=== PATIENT | female | born 1970 | race Caucasian/White ===

== ENCOUNTER → 2019-04-09 | Outpatient (CLI) | payer BC | LOC: LAB.O 15:43 | PROVIDERS: ATTEND Nurse Practitioner Family | DX: Z00.01 Encounter for general adult medical examination with abnormal findings (principal); I10 Essential (primary) hypertension; E03.9 Hypothyroidism, unspecified; E66.9 Obesity, unspecified; Z68.41 Body mass index [BMI] 40.0-44.9, adult ==

== ENCOUNTER 2019-04-10 19:56 | Emergency (ER) | payer BC ==
[2019-04-10] MEDS ORDERED: POTASSIUM CHLORIDE ELIXIR 20 MEQ/15 ML UD PO ONE (20:14)
[2019-04-10] MEDS ORDERED: amLODIPine BESYLATE 5 MG TAB PO ONE (20:56)
--- NOTE | 2019-04-10 21:53 | ED.PDOC ---
History of Present Illness - General Chief Complaint: Blood Pressure Problem Stated Complaint: elevated blood pressure, headache Time Seen by Provider: 04/10/19 20:14 Source: patient Exam Limitations: no limitations - History of Present Illness Initial Comments: The patient is a 48-year-old female brought in from clinic secondary to refractory hypertension. Blood pressures were in the 240s over 140s in clinic. The patient did have a mild headache. She has also been found to have some retinal hemorrhaging by her field talent qualification specialist. She was just found to have hypertension yesterday. Blood work yesterday shows mild hypokalemia. She is alert and oriented without any focal neurological changes. No chest pain or shortness of breath.the patient did receive a dose of clonidine prior to arrival here. Timing/Duration: unsure Severity: moderate Improving Factors: nothing Worsening Factors: nothing Associated Symptoms: headaches Home Medications: Ambulatory Orders Amlodipine Besylate 5 mg PO DAILY #21 tab 04/10/19 Potassium Chloride [Potassium Chloride ER] 10 meq PO DAILY #20 tab 04/10/19 Review of Systems - Review of Systems Constitutional: States: no symptoms reported EENTM: States: no symptoms reported Respiratory: States: no symptoms reported Cardiology: States: no symptoms reported Gastrointestinal/Abdominal: States: no symptoms reported Genitourinary: States: no symptoms reported Musculoskeletal: States: no symptoms reported Skin: States: no symptoms reported Neurological: States: headache Endocrine: States: no symptoms reported All other Systems: No Change from Baseline Past Medical History (General) - Patient Medical History Hx Seizures: No Hx Stroke: No Hx Dementia: No Hx Asthma: No Hx of COPD: No Hx Cardiac Disorders: No Hx Congestive Heart Failure: No Hx Pacemaker: No Hx Hypertension: Yes Hx Thyroid Disease: No Hx Diabetes: No Hx Gastroesophageal Reflux: No Hx Renal Disease: No Hx of HIV: No Hx MRSA: No Surgical History: other - Vaccination History Hx Tetanus, Diphtheria Vaccination: No Hx Influenza Vaccination: No Hx Pneumococcal Vaccination: No - Social History Hx Tobacco Use: No Hx Alcohol Use: Yes - occ Family Medical History - Family History Mother Hx Cardiac Disease: Yes Hx Family Cancer: Yes Physical Exam - Physical Exam General Appearance: Alert, Comfortable, No apparent distress Eye Exam: bilateral normal Ears, Nose, Throat: hearing grossly normal, normal ENT inspection Neck: full range of motion, supple Respiratory: lungs clear, normal breath sounds, no respiratory distress, no accessory muscle use Cardiovascular/Chest: normal peripheral pulses, regular rate, rhythm, no edema Peripheral Pulses: radial,right: 2+, radial,left: 2+ Gastrointestinal/Abdominal: non tender, soft Rectal Exam: deferred Back Exam: no CVA tenderness, no vertebral tenderness Extremity: normal range of motion, non-tender, normal inspection, no pedal edema, normal capillary refill Neurologic: grinder hand II-XII nml as tested, alert, normal mood/affect, oriented x 3 Skin Exam: normal color Comments: Vital Signs - 24 hr 04/10/19 04/10/19 04/10/19 20:10 21:20 21:49 Temperature 98.8 F 98.8 F Pulse Rate [ 80 84 80 left] Respiratory 20 20 20 Rate Blood Pressure 179/101 196/117 182/94 [left] O2 Sat by Pulse 98 99 Oximetry last blood pressure is 160/98 Progress - Progress Progress: 04/10/19 21:53 the patient is a 48-year-old female with markedly uncontrolled hypertension and a symptomatic headache from it. The patient received 10 mg of amlodipine here. Blood pressures are improving. She is going to be written for 5 mg of amlodipine daily for the next 3 weeks. She needs to continue her other blood pressure medication. In addition I'm going to write her for some supplemental potassium as her potassium was low in the check yesterday. She does need to follow her blood pressures several times daily when she is good and relaxed. She needs to keep follow-up with her primary care doctor. ER warnings were given for any significant worsening. Departure - Departure Clinical Impression: Hypertensive urgency Headache Qualifiers: Headache type: unspecified Headache chronicity pattern: acute headache Intractability: not intractable Qualified Code(s): R51 - Headache Disposition: Discharge to Home or Self Care Condition: Fair Departure Forms: ED Discharge - Pt. Copy, Patient Portal Self Enrollment Diet: low salt diet Activity: increase activity as tolerated Referrals: Babita Casiano NP [Primary Care Provider] - 1-5 Days Prescriptions: Amlodipine Besylate 5 mg PO DAILY #21 tab Potassium Chloride [Potassium Chloride ER] 10 meq PO DAILY #20 tab Home Medications: Ambulatory Orders Amlodipine Besylate 5 mg PO DAILY #21 tab 04/10/19 Potassium Chloride [Potassium Chloride ER] 10 meq PO DAILY #20 tab 04/10/19 Additional Instructions: the patient is a 48-year-old female with markedly uncontrolled hypertension and a symptomatic headache from it. The patient received 10 mg of amlodipine here. Blood pressures are improving. She is going to be written for 5 mg of amlodipine daily for the next 3 weeks. She needs to continue her other blood pressure medication. In addition I'm going to write her for some supplemental potassium as her potassium was low in the check yesterday. She does need to follow her blood pressures several times daily when she is good and relaxed. She needs to keep follow-up with her primary care doctor. ER warnings were given for any significant worsening.
[2019-04-10 22:12] VITALS: BP 164/98; TEMP 98.4; O2SAT 94
== END 2019-04-10 22:10 | disposition home or self-care (01) ==
LOC: ER 19:56
DX: I16.0 Hypertensive urgency (principal); R51 Headache

== ENCOUNTER 2019-04-24 16:24 | Emergency (ER) | payer BC ==
[2019-04-24 16:51] VITALS: TEMP 98.8
[2019-04-24] MEDS ORDERED: cloNIDine HCL 0.1 MG TAB PO ONE (16:51)
[2019-04-24] MEDS ORDERED: SODIUM CHLORIDE 0.9% 1000ML 1,000 ML IVS ONE (16:52)
[2019-04-24] MEDS ORDERED: diphenhydrAMINE HCL 50 MG/ML VIAL IV STA (16:53)
[2019-04-24] MEDS ORDERED: METOCLOPRAMIDE HCL INJ 10 MG/2 ML VIAL IV ONE (16:53)
--- NOTE | 2019-04-24 17:09 | ED.PDOC ---
History of Present Illness - General Chief Complaint: General Stated Complaint: Sinus pressure, N/V, abd cramping, ALMEIDA, HTN Time Seen by Provider: 04/24/19 16:49 Source: patient, RN notes reviewed, Vital Signs reviewed - History of Present Illness Initial Comments: The patient is a 48 year old with recent diagnosis of hypertension who presents with headache, nausea/vomiting, blurry vision. She states that she woke with these symptoms this morning. She was recently diagnosed with hypertension and has been compliant with her medications. She went to her chiropractor this afternoon with minimal relief. She saw her marketing analytics manager for her blurred vision and was told she had small bilateral retinal hemorrhages. This afternoon she started vomiting. She denies fever, diarrhea, other systemic symptoms. No other complaints at this time. Allergies/Adverse Reactions: Allergies Penicillins Allergy (Verified 04/24/19 16:51) Home Medications: Ambulatory Orders Amlodipine Besylate 5 mg PO DAILY #21 tab 04/10/19 Potassium Chloride [Potassium Chloride ER] 10 meq PO DAILY #20 tab 04/10/19 Xgabstejqp-Bvcxakweekttq-Kvsfo [Fioricet] 1 cap PO Q4HR PRN #20 cap 04/24/19 Review of Systems - Review of Systems Constitutional: States: malaise EENTM: States: blurred vision. Denies: eye pain, double vision Respiratory: Denies: cough, short of breath Cardiology: Denies: chest pain, palpitations Gastrointestinal/Abdominal: States: nausea, vomiting Genitourinary: States: no symptoms reported Musculoskeletal: States: no symptoms reported Skin: States: no symptoms reported Neurological: States: headache. Denies: numbness, paresthesia, tingling, weakness Past Medical History (General) - Patient Medical History Hx Seizures: No Hx Stroke: No Hx Dementia: No Hx Asthma: No Hx of COPD: No Hx Cardiac Disorders: No Hx Congestive Heart Failure: No Hx Pacemaker: No Hx Hypertension: Yes Hx Thyroid Disease: No Hx Diabetes: No Hx Gastroesophageal Reflux: No Hx Renal Disease: No Hx Cancer: Yes - Skin Hx of HIV: No Hx MRSA: No Surgical History: other - Vaccination History Hx Tetanus, Diphtheria Vaccination: No Hx Influenza Vaccination: No Hx Pneumococcal Vaccination: No - Social History Hx Tobacco Use: No Hx Alcohol Use: Yes Hx Substance Use: No Hx Substance Use Treatment: No Hx Depression: No - Female History Patient is a Female of Child Bearing Age (10 -59 yrs old): Yes Patient : No Family Medical History - Family History Mother Hx Cardiac Disease: Yes Hx Family Cancer: Yes Physical Exam - Physical Exam General Appearance: Alert, Comfortable, Obese, Well Developed, Well Nourished Ears, Nose, Throat: normal ENT inspection Neck: non-tender, full range of motion Respiratory: lungs clear, normal breath sounds, no respiratory distress, no accessory muscle use Cardiovascular/Chest: regular rate, rhythm, no edema, no JVD Gastrointestinal/Abdominal: normal bowel sounds, non tender Neurologic: chicken and fish cleaner II-XII nml as tested, no motor/sensory deficits, alert, normal mood/affect, oriented x 3 Progress - Progress Progress: 04/24/19 17:00 EKG STAT Laboratory Results - last 24 hr 04/24/19 04/24/19 04/24/19 17:00 17:00 17:00 WBC 9.7 RBC 4.65 Hgb 12.6 Hct 37.6 MCV 81.0 MCH 27.2 MCHC 33.6 RDW 15.3 H Plt Count 361 MPV 7.9 Absolute Neuts (auto) 7.50 H Absolute Lymphs (auto) 1.60 Absolute Monos (auto) 0.50 Absolute Eos (auto) 0.00 Absolute Basos (auto) 0.10 Neutrophils % 77.9 Lymphocytes % 16.0 L Monocytes % 5.3 Eosinophils % 0.2 L Basophils % 0.6 Sodium 136 Potassium 3.9 Chloride 97 L Carbon Dioxide 26 Anion Gap 16.9 BUN 21 H Creatinine 1.03 BUN/Creatinine Ratio 20.4 H Random Glucose 124 H Serum Osmolality 276.3 Calcium 9.3 Troponin I 0.09 H* 04/24/19 19:15 WBC RBC Hgb Hct MCV MCH MCHC RDW Plt Count MPV Absolute Neuts (auto) Absolute Lymphs (auto) Absolute Monos (auto) Absolute Eos (auto) Absolute Basos (auto) Neutrophils % Lymphocytes % Monocytes % Eosinophils % Basophils % Sodium Potassium Chloride Carbon Dioxide Anion Gap BUN Creatinine BUN/Creatinine Ratio Random Glucose Serum Osmolality Calcium Troponin I 0.08 H* 04/24/19 17:55 Patient reassessed, her headache has improved. CT reviewed, will add toradol. Suspect mild troponin elevation secondary to HTN urgency, will repeat. 04/24/19 19:53 Patient reassessed, she notes that her headache is significantly improved. Neurologic exam is non-focal. There is no evidence for hemorrhage on CT head. Discussed blood pressure management, she had her amlodipine increased to 10mg daily and picked up new prescription today. Discussed importance of maintaining blood pressure log. Will continue outpatient symptomatic management and follow up with PCP. Home care instructions and return indications reviewed. MDM Patient presents to the ED with migraine headache, nausea/vomiting, hypertensive urgency. Recently diagnosed as hypertensive and started on multiple medications. had her amlodipine increased today. On arrival to ED the blood pressure was over 200 systolic. She saw her chiropracter and marketing analytics manager today. While in the ED there is no evidence for acute stroke, intracranial hemorrhage, dissection or other vascular emergency. No neurologic deficits or lateralizing signs. Her headache and blood pressure improved with ED management. She has some posterior retinal hemorrhages likely secondary to uncontrolled hypertension and will continue outpatient follow up for this. She will maintain a home blood pressure log. Home care instructions and return indications reviewed. - EKG/XRAY/CT Comments: 1649 sinus tachy rate 104, LVH, nonspecific twave changes no stemi CT: No acute intracranial abnormality, see read CT Ordered: Yes Departure - Departure Clinical Impression: Hypertensive urgency, malignant Headache Qualifiers: Headache type: unspecified Headache chronicity pattern: acute headache Intractability: not intractable Qualified Code(s): R51 - Headache Time of Disposition: 19:58 Disposition: Discharge to Home or Self Care Condition: Good Departure Forms: ED Discharge - Pt. Copy, Patient Portal Self Enrollment Instructions: Headache, Adult (DC), Malignant Hypertension (DC) Diet: low salt diet Activity: increase activity as tolerated Referrals: Babita Casiano NP [Primary Care Provider] - 1-2 Weeks Prescriptions: Lsidljniaa-Byjbbwstuhror-Whbll [Fioricet] 1 cap PO Q4HR PRN #20 cap PRN Reason: Headache/Migraine Pain Home Medications: Ambulatory Orders Amlodipine Besylate 5 mg PO DAILY #21 tab 04/10/19 Potassium Chloride [Potassium Chloride ER] 10 meq PO DAILY #20 tab 04/10/19 Anjyjbsdrj-Ugiucdxrrcxuw-Iqzhp [Fioricet] 1 cap PO Q4HR PRN #20 cap 04/24/19 Comments: Forrest Richter MD Emergency Medicine Physician Number [id number]
--- NOTE | 2019-04-24 17:34 | CT ---
EXAM: CT Head Without Intravenous Contrast CLINICAL HISTORY: sudden onset headache, vomiting, Bp > 200 TECHNIQUE: Axial computed tomography images of the head/brain without intravenous contrast. Sagittal and coronal reformatted images were created and reviewed. This CT exam was performed using one or more of the following dose reduction techniques: automated exposure control, adjustment of the mA and/or kV according to patient size, and/or use of iterative reconstruction technique. COMPARISON: No relevant prior studies available. FINDINGS: Limitations: None. Brain: Unremarkable. No hemorrhage. No significant white matter disease. No edema. Ventricles: Unremarkable. No ventriculomegaly. Bones/joints: Unremarkable. No acute fracture. Soft tissues: Unremarkable. Sinuses: Unremarkable as visualized. No acute sinusitis. Mastoid air cells: Unremarkable as visualized. No mastoid effusion. IMPRESSION: No acute findings. Consider MRI if additional imaging is clinically warranted. Electronically signed by: Tori Craft MD 04/24/2019 5:32 PM CDT
[2019-04-24] MEDS ORDERED: KETOROLAC TROMETHAMINE INJ 30 MG/ML VIAL IV ONE (17:56)
[2019-04-24] MEDS ORDERED: ACETAMINOPHEN-CAFF-BUTALBITAL 1 EA TAB PO STA (19:23)
[2019-04-24] MEDS ORDERED: MORPHINE SULFATE INJ 10 MG/ML VIAL IV ONE (19:24)
[2019-04-24 20:12] VITALS: BP 137/85; O2SAT 98
== END 2019-04-24 20:13 | disposition home or self-care (01) ==
LOC: ER 16:24
DX: I16.0 Hypertensive urgency (principal); R51 Headache; R11.2 Nausea with vomiting, unspecified; R00.0 Tachycardia, unspecified; Z85.828 Personal history of other malignant neoplasm of skin; Z79.899 Other long term (current) drug therapy; Z88.0 Allergy status to penicillin
CPT/HCPCS: 36415; 70450; 80048; 84484; 85025; 93005; J1200; J1885; J2270; J2765; J7030

== ENCOUNTER → 2019-05-13 | Outpatient (CLI) | payer BC ==
--- NOTE | 2019-05-14 16:47 | US ---
US THYROID CLINICAL STATEMENT: NONTOXIC SINGLE THYROID NODULE. . No palpable mass. No prior thyroid surgery or therapy. COMPARISON: None TECHNIQUE: Transcutaneous scanning, grayscale and Doppler modes. FINDINGS: Size right thyroid lobe: 5.2 x 1.9 x 1.4 cm Size left thyroid lobe: 5.4 x 3.3 x 2.3 cm Size isthmus: 0.6 cm Estimated total number of nodules greater than or equal to 1 cm: 3. No cysts or large calcifications. Nodule 1: Size: 4.0 x 2.2 x 1.8 cm Location: Left Lower Composition: mixed cystic and solid: 1 point Echogenicity: hypoechoic: 2 points Shape: wider than tall: 0 points Margins: ill-defined: 0 points Echogenic foci: none: 0 points ACR Total Points: 3; ACR TI-RADS risk category: TR3 - mildly suspicious nodule. Nodule 2: Size: 1.6 x 1.2 x 1.1 cm Location: Right Lower Composition: solid or almost completely solid: 2 points Echogenicity: hypoechoic: 2 points Shape: wider than tall: 0 points Margins: smooth: 0 points Echogenic foci: none: 0 points ACR Total Points: 4; ACR TI-RADS risk category: TR4 - moderately suspicious nodule. Nodule 3: Size: 1.2 x 1.1 x 0.8 cm Location: Right Lower Composition: solid or almost completely solid: 2 points Echogenicity: hypoechoic: 2 points Shape: wider than tall: 0 points Margins: smooth: 0 points Echogenic foci: none: 0 points ACR Total Points: 4; ACR TI-RADS risk category: TR4 - moderately suspicious nodule. The soft tissue around the thyroid gland show no dominant solid mass or distinct cyst. No parenchymal edema or large calcifications. No abnormal vascularity. IMPRESSION: 1. Nodule 1: ACR TI-RADS 2017 Category TR3. Recommend: Ultrasound-guided fine needle aspiration. Recommendations based upon [employer] Best [employer] recommendations and ACR TI-RADS 2017 guidelines. Please see below*. 2. Nodule 2: ACR TI-RADS 2017 Category TR4. Recommend: Ultrasound-guided fine needle aspiration 3. Nodule 3: ACR TI-RADS 2017 Category TR4. Recommend: Follow-up ultrasound in 1 year. 4. Soft tissue around the thyroid gland is unremarkable. *ACR TI-RADS 2017 Recommendations for imaging follow-up of nodules: TR1: No FNA or follow up TR2: No FNA or follow up TR3: FNA if >/= 2.5 cm, follow up if 1.5 - 2.4 cm in 1, 3, and 5 years TR4: FNA if >/= 1.5 cm, follow up if 1.0 - 1.4 cm in 1, 2, 3, and 5 years TR5: FNA if >/= 1.0 cm, follow up if 0.5 - 0.9 cm every year for 5 years ACR TI-RADS recommends that no more than two nodules with the highest ACR TI-RADS total point should be biopsied and no more than four nodules should be followed. These recommendations do not apply to patients with increased risk for thyroid cancer or patients with symptomatic thyroid disease. Electronically signed by: Ethan Howard MD 05/14/2019 4:45 PM CDT
== END ==
LOC: US 13:40
PROVIDERS: ATTEND Nurse Practitioner Family
DX: E04.2 Nontoxic multinodular goiter (principal)

== ENCOUNTER → 2019-06-03 | Outpatient (CLI) | payer BC | LOC: YCFC.O 11:05 | PROVIDERS: ATTEND Nurse Practitioner Family | DX: I10 Essential (primary) hypertension (principal); D50.9 Iron deficiency anemia, unspecified ==

== ENCOUNTER → 2020-05-11 | Outpatient (CLI) | payer BC | LOC: GMA MATASK 11:16 | PROVIDERS: ATTEND Family Medicine | DX: Z00.00 Encounter for general adult medical examination without abnormal findings (principal); D50.9 Iron deficiency anemia, unspecified ==